=== PATIENT | female | born 2005 | race Two or more races ===

== ENCOUNTER → 2025-01-14 | Emergency (ER) | payer OTHER ==
[~2025-01-14] VITALS: Ht 162.6 cm; Wt 54.4 kg
[~2025-01-14] MED LIST: 0.9 % SODIUM CHLORIDE 500 ML IV SCH; FAMOTIDINE/PF 20 MG/2 ML VIAL IV STA; FAMOTIDINE/PF 20 MG/2 ML VIAL ONE; KETOROLAC TROMETHAMINE 60 MG VIAL IM ONE; KETOROLAC TROMETHAMINE 60 MG VIAL IM STA
== END | disposition left against medical advice (07) ==
LOC: ER 14:39 → EMR PED 15:08
DX: R42 Dizziness and giddiness (principal); R20.0 Anesthesia of skin; Z91.013 Allergy to seafood